=== PATIENT | female | born 1975 | race Native Hawaiian/Other Pacific Islander ===

== ENCOUNTER 2020-01-31 12:42 | Emergency (ER) | payer SELFPAY ==
[2020-01-31 13:16] VITALS: BP 128/46
--- NOTE | 2020-01-31 13:19 | Event Note ---
ED Screening Note ED Screening Note: Patient presents for heavy bleeding for 2 months She has a history of fibroids States that she was evaluated by a doctor Yesterday and had blood drawn and reports that she was very anemic and needed to report to the emergency department She was started on ferrous sulfate and Provera yesterday She is not on any control otherwise This initial assessment/diagnostic orders/clinical plan/treatment(s) is/are subject to change based on patients health status, clinical progression and re- assessment by fellow clinical providers in the ED. Further treatment and workup at subsequent clinical providers discretion. Patient/guardian urged not to elope from the ED as their condition may be serious if not clinically assessed and managed. Initial orders include: Labs, UA, ultrasound
[2020-01-31 13:46] LABS: Basophils # (Auto) 0.1 K/mm3 (0.0-0.1); Basophils % (Auto) 0.7 % (0.0-1.8); Eosinophils # (Auto) 0.1 K/mm3 (0.0-0.4); Eosinophils % (Auto) 0.8 % (0.0-4.3); Lymphocytes # (Auto) 1.7 K/mm3 (1.2-5.4); Mean Corpuscular HGB Conc 30 % (30-34); Monocytes # (Auto) 0.6 K/mm3 (0.0-0.8); Monocytes % (Auto) 6.9 % (0.0-7.3); Platelet Count 390 K/mm3 (140-440); Red Blood Count 2.69 M/mm3 (3.65-5.03)
[2020-01-31 13:54] LABS: Hematocrit 16.8 % (30.3-42.9); Mean Corpuscular Volume 63 fl (79-97)
[2020-01-31 13:56] LABS: INR 1.09 (0.87-1.13); Partial Thromboplastin Time 22.8 Sec. (24.2-36.6)
[2020-01-31 14:08] LABS: Alanine Aminotransferase 11 units/L (7-56); Blood Urea Nitrogen 13 mg/dL (7-17); Calcium 8.8 mg/dL (8.4-10.2); Hemolysis Index 0
[2020-01-31 14:11] LABS: BUN/Creatinine Ratio 19
[2020-01-31 14:43] LABS: Bacteria,Urine 4+ /HPF (Negative); Bilirubin,Urine NEG (Negative); Blood,Urine LG (Negative); Color,Urine Yellow (Yellow); Mucus,Urine 2+ /HPF; Urobilinogen,Urine < 2.0 mg/dL (<2.0)
--- NOTE | 2020-01-31 15:10 | Ultrasound Report ---
ULTRASOUND PELVIS COMPLETE ULTRASOUND TRANSVAGINAL INDICATION / CLINICAL INFORMATION: heavy bleeding. TECHNIQUE: Transabdominal and Transvaginal. Duplex Color Doppler used: Yes. COMPARISON: None available FINDINGS: UTERUS: Present. - Appearance (if present): Mildly enlarged and heterogeneous - Size in cm (if present): 11.5 x 6.4 x 5.7. - Endometrial Complex (if present): The endometrium is thickened and mildly heterogeneous.. Thickness in cm (if measured) = 2.2 - Mass lesions: Multiple fibroids are suspected with the largest measuring 5.5 cm in the right latera l wall. - Additional findings: A 1.1 cm nabothian cyst containing debris is identified. RIGHT ADNEXA: A 2.8 cm right ovarian cyst is identified. Normal color Doppler blood flow. LEFT ADNEXA: A 5.8 cm left ovarian cyst is identified. Normal color Doppler blood flow. URINARY BLADDER: Empty and poorly evaluated. FREE FLUID: None. ADDITIONAL FINDINGS: None. IMPRESSION: Mild to moderate uterine fibroid disease. The endometrium is mildly complex and thickened up to 2.2 cm. This could represent endometrial hyperp lasia. No discrete endometrial mass is appreciated on ultrasound. Bilateral ovarian cysts as described. Complex nabothian cyst. Signer Name: Cedrick Mccormick Jr, MD Signed: 01/31/2020 3:06 PM Workstation Name: [id number]
== END 2020-01-31 18:20 | disposition left against medical advice (07) ==
LOC: ED 12:42
DX: N93.9 Abnormal uterine and vaginal bleeding, unspecified (principal); Z53.21 Procedure and treatment not carried out due to patient leaving prior to being seen by health care provider
CPT/HCPCS: 36415; 76830; 76856; 80053; 81001; 84702; 85025; 85610; 85730; 86850; 86900; 86901; 87086

== ENCOUNTER 2020-02-19 18:22 | Emergency (ER) | payer SELFPAY ==
--- NOTE | 2020-02-19 19:43 | Event Note ---
ED Screening Note Date of service: 02/19/20 Time: 19:42 ED Screening Note: 44-year-old female presents to the emergency room for vaginal bleeding with clots. Recent blood transfusion on 01/31/2020 for anemia. This initial assessment/diagnostic orders/clinical plan/treatment(s) is/are subject to change based on patients health status, clinical progression and re- assessment by fellow clinical providers in the ED. Further treatment and workup at subsequent clinical providers discretion. Patient/guardian urged not to elope from the ED as their condition may be serious if not clinically assessed and managed. Initial orders include:
[2020-02-19 20:11] LABS: Hematocrit 20.8 % (30.3-42.9); Hemoglobin 6.5 gm/dl (10.1-14.3); Mean Corpuscular HGB Conc 31 % (30-34); Mean Corpuscular Volume 75 fl (79-97); Platelet Count 386 K/mm3 (140-440); Red Blood Count 2.77 M/mm3 (3.65-5.03)
[2020-02-19 20:13] LABS: Red Cell Distribution Width 31.9 % (13.2-15.2)
[2020-02-19 20:30] LABS: Alanine Aminotransferase 8 units/L (7-56); Albumin 3.8 g/dL (3.9-5); Blood Urea Nitrogen 10 mg/dL (7-17); Calcium 8.8 mg/dL (8.4-10.2); Hemolysis Index 8
[2020-02-19 20:34] LABS: BUN/Creatinine Ratio 17
[2020-02-19 20:50] LABS: Basophils % (Manual) 0 % (0.0-1.8); Total Cells Counted 100
[2020-02-19 20:52] LABS: Anisocytosis 3+; Hypochromasia 1+; Platelet Estimate Consistent w Auto; Tear Drop Cells Rare
[2020-02-19] MEDS ORDERED: SODIUM CHLORIDE 0.9% 500 ML 500 ML IV ONE (22:25)
--- NOTE | 2020-02-19 22:31 | Emergency Department Report ---
HPI - General Chief Complaint: Vaginal Bleeding Time Seen by Provider: 02/19/20 22:13 - HPI HPI: This is a 44-year-old female who presents to the emergency department with complaint of a 6-day history of moderate to heavy vaginal bleeding during her menstrual cycle, including some clots. The patient denies any fever, chest pain, shortness of breath, weakness, abdominal or pelvic pain, dysuria, but just complains of some mild fatigue. The patient denies any past medical history but is aware of fibroid disease. The patient was here on 01/31/2020 for similar symptoms. Prior to that visit she had been placed on iron pills and Provera and was sent in from a women's clinic. Patient had an ultrasound that showed uterine fibroid disease, and had a hemoglobin of 5 at that time. It appears the patient was not seen by a physician at that time as she eloped from the emergency department. The patient says that she was hungry that day as she had not eaten and she left the emergency department and lost her place in line and then just decided to go home. She denies having a primary care physician or POLYSOMNOGRAPHY TECHNICIAN. She has not taken anything for symptoms prior to presentation today. The patient does not speak any Bengali so the language [employer] head of geography services were used for Sinhala translation. ED Past Medical Hx - Past Medical History Previous Medical History?: No Additional medical history: ANEMIA - Surgical History Past Surgical History?: No - Social History Smoking Status: Never Smoker Substance Use Type: None - Medications Home Medications: Home Medications Medication Instructions Recorded Confirmed Last Taken Type Ferrous Sulfate [Feosol] 325 mg PO BID #40 tablet 02/20/20 Unknown Rx ED Review of Systems ROS: Stated complaint: ABNORMAL TEST/REVISIT Other details as noted in HPI Comment: All other systems reviewed and negative Constitutional: other (fatigue). denies: chills, fever Eyes: denies: eye pain, vision change ENT: denies: ear pain, throat pain Respiratory: denies: cough, shortness of breath Cardiovascular: denies: chest pain, palpitations Gastrointestinal: denies: abdominal pain, vomiting Genitourinary: abnormal menses. denies: dysuria Musculoskeletal: denies: back pain, arthralgia Skin: denies: rash, lesions Neurological: denies: headache, weakness Physical Exam - Physical Exam Vital Signs: Vital Signs 02/19/20 18:35 Temperature 98.6 F Pulse Rate 90 Respiratory 18 Rate Blood Pressure 116/42 [Right] O2 Sat by Pulse 98 Oximetry Physical Exam: GENERAL: The patient is well-developed well-nourished. HENT: Normocephalic. Atraumatic. Patient has moist mucous membranes. EYES: Extraocular motions are intact. NECK: Supple. Trachea is midline. CHEST/LUNGS: Clear to auscultation. There is no respiratory distress noted. HEART/CARDIOVASCULAR: Regular. There is no tachycardia. There is no murmur. ABDOMEN: Abdomen is soft, nontender. Patient has normal bowel sounds. SKIN: Skin is warm and dry. NEURO: The patient is awake, alert, and oriented. The patient is cooperative. The patient has no focal neurologic deficits. Normal speech. MUSCULOSKELETAL: There is no tenderness or deformity. There is no limitation range of motion. ED Course Vital Signs 02/19/20 18:35 Temperature 98.6 F Pulse Rate 90 Respiratory 18 Rate Blood Pressure 116/42 [Right] O2 Sat by Pulse 98 Oximetry ED Medical Decision Making - Lab Data Result diagrams: 02/19/20 19:49 02/19/20 19:49 - Medical Decision Making This patient presents to the emergency department with a complaint of heavy vaginal bleeding during her menstrual cycle which has now lasted about 6 days. The patient was here about 3 or 4 weeks ago and was found to have a hemoglobin of 5 at that time. She never received a blood transfusion but appears to have been placed on Provera and iron pills at that time. Her hemoglobin today is at 6.5. The rest of the labs are unremarkable. Vital signs have been reassuring throughout her ED course thus far including being afebrile. The patient does not appear to have any symptomatic anemia. 1 unit of packed red blood cells has been ordered for transfusion. This should bring the patient up to about a 7.5 hemoglobin level. She will be placed on iron supplementation and has been given outpatient referrals for multiple local POLYSOMNOGRAPHY TECHNICIAN groups. The ultrasound done a few weeks ago shows uterine fibroid disease. The patient appears to be aware of the fibroids. She will return to the emergency department with any worsening of her symptoms or with any acute distress. Critical care attestation.: If time is entered above; I have spent that time in minutes in the direct care of this critically ill patient, excluding procedure time. ED Disposition Clinical Impression: Menorrhagia, Fibroid, uterine, Anemia requiring transfusions Disposition: TO HOME OR SELFCARE Is pt being admited?: No Condition: Stable Instructions: Abnormal Uterine Bleeding, Menorrhagia, Blood Transfusion, Adult, Care After Additional Instructions: Please follow-up with an POLYSOMNOGRAPHY TECHNICIAN in the next 2 days regarding your irregular and heavy vaginal bleeding, and your history of fibroids. I have given you a referral for multiple local POLYSOMNOGRAPHY TECHNICIAN groups in the area. Take the iron pills. Return to the emergency department with any worsening of your symptoms, new or concerning symptoms not addressed during this current emergency department visit, or with any acute distress. Prescriptions: Ferrous Sulfate [Feosol] 325 mg PO BID #40 tablet Referrals: [facility] [Provider Group] - 3-5 Days [facility] [Provider Group] - 3-5 Days [facility] [Provider Group] - 3-5 Days Time of Disposition: 01:41 Print Language: ROMANSH
[2020-02-19 23:19] LABS: Bacteria,Urine 2+ /HPF (Negative); Bilirubin,Urine NEG (Negative); Blood,Urine LG (Negative); Color,Urine Yellow (Yellow); Mucus,Urine FEW /HPF; Protein,Urine <15 mg/dL mg/dL (Negative); Urobilinogen,Urine < 2.0 mg/dL (<2.0)
[2020-02-20 03:35] VITALS: BP 104/55
== END 2020-02-20 03:40 | disposition home or self-care (01) ==
LOC: ED 18:22
DX: D64.9 Anemia, unspecified (principal); N92.0 Excessive and frequent menstruation with regular cycle; D25.9 Leiomyoma of uterus, unspecified; Z79.899 Other long term (current) drug therapy
CPT/HCPCS: 36415; 36430; 80053; 81001; 84702; 85007; 85025; 86850; 86900; 86901; 86920; 96360; 96361; 99283; J7040; P9016